=== PATIENT | female | born 2000 | race Hispanic/Latino ===

== ENCOUNTER 2023-01-18 11:07 | Emergency (ER) | payer OTHER ==
[~2023-01-18] VITALS: Ht 165.1 cm; Wt 89.8 kg
[2023-01-18 11:08] VITALS: BP 155/90; PULSE 73; RESP 20
[2023-01-18 12:51] LABS: BILIRUBIN,URINE NEGATIVE (NEGATIVE); GLUCOSE, URINE (UA) NEGATIVE (NEGATIVE); KETONES,URINE 5 mg/dL (NEGATIVE); LEUKOCYTE ESTERASE ,URINE SMALL Leu/uL (NEGATIVE); NITRATE,URINE POSITIVE (NEGATIVE); OCCULT BLOOD,URINE LARGE (NEGATIVE); PH,URINE 6.5 (5.0-8.0); PROTEIN,URINE >=300 mg/dL (NEGATIVE)
[2023-01-18 12:52] LABS: HCG,QUALITATIVE URINE NEGATIVE (NEGATIVE)
[2023-01-18 13:00] LABS: ADD UA MICROSCOPIC YES; APPEARANCE,URINE CLOUDY (CLEAR); COLOR,URINE RED (YELLOW)
[2023-01-18 13:15] LABS: RBC,URINE TNTC /HPF (0-1)
[2023-01-18 13:18] LABS: WBC,URINE 26-50 /HPF (0-1)
[2023-01-18 13:19] LABS: BACTERIA,URINE Moderate /HPF (None Seen); SQUAMOUS EPITHELIAL CELL,UR Few /HPF (0-2)
[2023-01-18] MEDS ORDERED: CEFTRIAXONE 1G VIAL IM ONE (13:30)
[2023-01-18] MEDS ORDERED: SULF1TAB42 PO (15:30)
== END 2023-01-18 15:44 | disposition home or self-care (01) ==
LOC: EDH 11:07
DX: N39.0 Urinary tract infection, site not specified (principal)
CPT/HCPCS: 99285; 74176; 87088; 81001; 81025; 96372; J0696